=== PATIENT | male | born 1950 | race Caucasian/White ===

== ENCOUNTER → 2018-06-04 | Outpatient (CLI) | payer MEDICARE ==
[2018-06-05 14:52] LABS: Hepatits C Virus RNA Not detected (Not detected); Hepatits C Virus RNA, Quant <12 IU/mL (<12); LOG HCV IU/mL <1.08 (<1.08)
== END | disposition home or self-care (01) ==
LOC: LABWHC1 13:45
PROVIDERS: ATTEND Internal Medicine
DX: R76.8 Other specified abnormal immunological findings in serum (principal)
CPT/HCPCS: 36415; 87522

== ENCOUNTER → 2018-12-23 | Outpatient (CLI) | payer MEDICARE ==
--- NOTE | 2018-12-24 10:20 | MR ---
EXAMINATION TYPE: MR lumbar spine wo con DATE OF EXAM: 12/23/2018 COMPARISON: NONE HISTORY: Degenerative disc disease lumbar spine per order. Left leg pain per patient for 4 years. TECHNIQUE: Multiplanar, multisequence imaging of the lumbar spine is performed without IV contrast. FINDINGS: Sagittal images of the lumbar spine show vertebral body heights and alignment to appear sat isfactory. Multilevel disc desiccation is present. There is mild to moderate disc space narrowing and vacuum disc phenomenon L4-L5 level. There is mild disc space narrowing with vacuum disc phenomenon L 5-S1 level . There is annular tear with increased signal posteriorly at L2-L3 and L3-L4 levels. The c onus medullaris is normal in position and signal ending mid L1 level. The bone marrow signal intensi ty is within normal limits. Axial images show the T12-L1 and L1-L2 levels appear within normal limits. Axial images at the L2-L3 level show pzme-[id number] broad disc bulge with central disc protrusion e ffacing the anterior thecal sac and causing mild bilateral anterior inferior neural foraminal narrowi ng. Axial images at L3-L4 level show mild/moderate facet degenerative change and ligamentous hypertrophy present plumbing designer lateral thecal sac on axial image 17. There is moderate broad disc bulge with central disc protrusion effacing the anterior thecal sac. There is mild to moderate left greater than right b ilateral anterior inferior neural foraminal narrowing. Axial images at the L4-L5 show moderate facet degenerative changes effacing posterior lateral thecal sac on axial image 12. There is moderate broad-based posterior disc protrusion effacing anterior thec al sac. There is vejv-ox-atkpvgko bilateral anterior inferior neural foraminal narrowing at this leve l identified. Axial images at the L5-S1 level shows subtle spondylolisthesis with mild/moderate facet degenerative changes bilaterally. There is broad disc bulge with central disc protrusion but spinal canal is prese rved. There is moderate right and mild to moderate left-sided anterior inferior neural foraminal narr owing. Some encroachment along the anterior margin left L5 nerve is thought present sagittal images 1 and 2. Paraspinal muscle bulk is preserved. No suspicious incidental retroperitoneal findings are seen. IMPRESSION: Multilevel degenerative changes mid to lower lumbar spine as detailed above most prominen t at L3-L4 through the L5-S1 levels. If outside MRI becomes available an addendum may be issued.
== END | disposition home or self-care (01) ==
LOC: RADMRIMAIN 13:06
PROVIDERS: ATTEND Internal Medicine
DX: M47.816 Spondylosis without myelopathy or radiculopathy, lumbar region (principal); M47.817 Spondylosis without myelopathy or radiculopathy, lumbosacral region
CPT/HCPCS: 72148

== ENCOUNTER → 2020-04-09 | Outpatient (CLI) | payer MEDICARE ==
--- NOTE | 2020-04-09 08:30 | US ---
EXAMINATION TYPE: US duplex aorta DATE OF EXAM: 04/09/2020 COMPARISON: MRI lumbar spine December 23, 2018 CLINICAL HISTORY: Z13.6 Screening for cardiovascular disorders. Screening for AAA EXAM MEASUREMENTS: Abdominal Aorta: Proximal: 1.8 x 1.7cm Mid: 1.8 x 1.6cm Distal: 1.8 x 1.7cm Bifurcation: RT: 0.9 x 1.0cm LT: 1.1 x 1.0cm Visualized portions show no evidence of AAA Aorta is successfully visualized through the bifurcation. IMPRESSION: No ultrasound evidence for AAA.
== END | disposition home or self-care (01) ==
LOC: RADUSWWP 03-29 08:18
PROVIDERS: ATTEND Internal Medicine
DX: Z13.6 Encounter for screening for cardiovascular disorders (principal)
CPT/HCPCS: 93979

== ENCOUNTER 2020-10-20 07:35 | Day surgery (SDC) | payer MEDICARE ==
[2020-10-19 14:06] VITALS: BMI 28.7
[2020-10-20 08:12] VITALS: TEMP 97.5
[2020-10-20] MEDS ORDERED: LACTATED RINGERS 1,000 ML IV ONE (08:12)
[2020-10-20] MEDS ORDERED: PROPOFOL 10 MG/ML 20 ML VIAL IV ONE (08:25)
--- NOTE | 2020-10-20 08:44 | P.PCN ---
Date of Procedure: 10/20/20 Procedure(s) Performed: BRIEF HISTORY: Patient is a 69-year-old [id number] white male scheduled for an elective colonoscopy as a part of evaluation of prior history of colon polyps. His last colonoscopy was 5 years ago. PROCEDURE PERFORMED: Colonoscopy. PREOPERATIVE DIAGNOSIS: History of colon polyps. IV sedation per Anesthesia. PROCEDURE: After informed consent was obtained, the patient, was brought into the endoscopy unit. IV sedation was administered by Anesthesia under continuous monitoring. Digital rectal examination was normal. Initially the Olympus CF-160 flexible video colonoscope was then inserted in the rectum, gradually advanced into the cecum without any difficulty. Careful examination was performed as the scope was gradually being withdrawn. Ileocecal valve and the appendiceal orifice were visualized and appeared normal. Prep was excellent. Mucosa of the cecum, ascending colon, transverse colon, descending colon, sigmoid colon, and rectum appeared normal. Scattered sigmoid diverticulosis. Retroflexion was performed in the rectum and no lesions were seen. The patient tolerated the procedure well. IMPRESSION: Normal-appearing colon from rectum to cecum with no evidence of colorectal neoplasia . Scattered sigmoid diverticulosis. RECOMMENDATIONS: Findings of this examination were discussed with the patient as well as his family. He was advised to have a repeat colonoscopy in 5 years from now because of the prior history of colon polyps.
[2020-10-20 09:10] VITALS: BP 110/76; PULSE 60; RESP 20
== END 2020-10-20 09:14 | disposition home or self-care (01) ==
LOC: ORWHC2ENDO 07:35
PROVIDERS: ATTEND Internal Medicine Gastroenterology
DX: K57.30 Diverticulosis of large intestine without perforation or abscess without bleeding (principal); Z86.010 Personal history of colon polyps
CPT/HCPCS: 45378; J2704

== ENCOUNTER 2021-01-01 19:14 | Emergency (ER) | payer MEDICARE ==
[2021-01-01 19:19] VITALS: TEMP 98
[2021-01-01] MEDS ORDERED: ONDANSETRON 4 MG/2 ML VIAL IVP STA (19:37)
[2021-01-01] MEDS ORDERED: GLUCAGON 1 MG/ML VIAL IVP STA (20:19)
--- NOTE | 2021-01-01 20:19 | XR ---
EXAMINATION TYPE: XR chest 2V DATE OF EXAM: 01/01/2021 COMPARISON: NONE HISTORY: Food impaction TECHNIQUE: 2 views FINDINGS: Heart and mediastinum are normal. Lungs are clear. Diaphragm is normal. Bony thorax is inta ct. IMPRESSION: Normal chest.
[2021-01-01] MEDS ORDERED: diazePAM 2 MG TAB PO STA (20:20)
--- NOTE | 2021-01-01 20:20 | XR ---
EXAMINATION TYPE: XR soft tissue neck DATE OF EXAM: 01/01/2021 COMPARISON: NONE HISTORY: Food impaction TECHNIQUE: 2 views FINDINGS: Epiglottis is normal. Subglottic trachea appears normal. There is some degenerative disc sp itzel narrowing at C5-6 and C6-7. Prevertebral soft tissues are intact. There is no evidence of a forei gn body. Tonsils and adenoids appear intact. IMPRESSION: Negative cervical soft tissue exam.
--- NOTE | 2021-01-01 21:24 | ED ---
General Adult HPI - General Chief complaint: ENT Stated complaint: choking Time Seen by Provider: 01/01/21 19:26 Source: patient, RN notes reviewed, old records reviewed Mode of arrival: wheelchair - History of Present Illness Initial comments: I evaluated the patient when he was placed in a room.Patient is a 70-year-old male with past medical history remarkable for a cholecystectomy, hypertension as well as chronic dysphasia presents emergency Department complaining of prior rib stuck in his throat. He has had this sensation previously but it normally clears on its own. He was out to eat approximate hour and a half ago when he department seconds throat. He began to choke some, and the Heimlich was attempted but he did not spit any up. He believes is still stuck there. He denies any difficulty breathing, coughing, chest pain, abdominal pain, nausea, vomiting. He is complaining of a sensation of some stuck in the back of his throat. Denies any headaches, weakness, numbness. His no other acute complaints at this time. Patient presents over concern for food impaction of the esophagus. He attempted to swallow liquids of the restaurant but believes that he does spit them back up. He was vaccinated for COVID-19. - Related Data Home Medications Medication Instructions Recorded Confirmed Escitalopram [Lexapro] 10 mg PO QAM 10/19/20 10/19/20 Multivitamins, Thera [Multivitamin 1 tab PO DAILY 10/19/20 10/19/20 (formulary)] traZODone HCL [Desyrel] 100 mg PO HS 10/19/20 10/19/20 Allergies Allergy/AdvReac Type Severity Reaction Status Date / Time No Known Allergies Allergy Verified 01/01/21 19:19 Review of Systems ROS Statement: Those systems with pertinent positive or pertinent negative responses have been documented in the HPI. Review of Systems: CONST: Denies fever EYES: Denies blurry vision ENT: Endorses feeling of something stuck in his esophagus. C/V: Denies Chest pain RESP: Denies shortness of breath GI: Denies abdominal pain : Denies dysuria SKIN: Denies rash. MSK: Denies joint pain. NEURO: Denies headache ROS Other: All systems not noted in ROS Statement are negative. Past Medical History Additional Past Medical History / Comment(s): received Moderna both covid vaccine doses,left bundle branch block,hx htn-has been off Rx for approx 10 yrs, hep C-tx 2004,colon polyps History of Any Multi-Drug Resistant Organisms: None Reported Past Surgical History: Cholecystectomy Past Anesthesia/Blood Transfusion Reactions: No Reported Reaction Past Psychological History: Anxiety Smoking Status: Current some day smoker Past Alcohol Use History: None Reported Past Drug Use History: None Reported - Past Family History Mother Family Medical History: No Reported History Sister(s) Family Medical History: Cancer Additional Family Medical History / Comment(s): skin General Exam - General Exam Comments Initial Comments: General: Some mild discomfort secondary to retained food in his esophagus. HEAD: Normal with no signs of head trauma. EYES: PERRLA, EOMI, conjunctiva normal, no discharge. Pupils are 3 mm and equal bilaterally. ENT: Hearing grossly intact, normal oropharynx. No stridor auscultated. RESPIRATORY: Clear breath sounds bilaterally. No wheezes, rales, or rhonchi. C/V: Regular rate and rhythm. S1 and S2 auscultated, no edema, peripheral pulses 2+ and intact throughout ABD: Abd is soft, nontender, nondistended EXT: No obvious deformity SKIN: No rashes or lesions observed on exposed skin. NEURO: Alert and oriented 4. Course Vital Signs 01/01/21 01/01/21 01/01/21 19:17 20:19 21:43 Temperature 98 F Pulse Rate 60 55 L 93 Respiratory 25 H 18 16 Rate Blood Pressure 164/79 116/83 139/89 O2 Sat by Pulse 100 98 98 Oximetry Medical Decision Making - Medical Decision Making Based on the patient's presentation and physical exam, he appears to have a food impaction of the ends esophagus. His primary rib. He states that there was no bones present in the prime rib. There may be some mushrooms and gravy with that as well. He does have a history of this. He is uncertain if he has not been able to tolerate swallowing any water as he is spitting up a lot. We will obtain x-rays of the neck as well as chest just to rule out any acute pathology. EKG was obtained by triage which showed a chronic left bundle branch block. Patient's x-ray showed no acute process. We will initially attempt to clear the blockage with a carbonated beverage. Patient was in agreement this plan. Patient tolerated the procedure well with a carbonated beverage. He was able to clear the blockage. Is tolerating by mouth intake both solids and liquids afterwards. His discomfort is resolved. I do believe it is safer to be disch arged home. We discussed that he may require motility study or swallow study. He was in agreement. I will provide him with contact information for Dr. Blake of gastrology. I instructed the patient to follow up with their PCP in the next 3 days. I explained that the patient should return to the emergency department if they experience any worsening symptoms. Strict return precautions were discussed with the patient. The patient expressed understanding of these instructions. I answered all questions that the patient had. The patient was discharged home in good condition with their prescriptions and follow up information. - EKG Data -: EKG Interpreted by Me EKG Comments: 12-lead Electrocardiogram Interpretation Note EKG was reviewed and interpreted by myself. 12-lead ECG performed at 1934 is interpreted by me as revealing normal sinus rhythm at a rate of 59 beats per minute. [place] is normal. Intervals 160 ms, QR cheondoism is 160 ms, QTc is 495 ms.. There were no ST or T wave abnormalities to suggest myocardial ischemia or injury. Patient has a left bundle-branch block which has a history of.. By my interpretation this EKG is non-diagnostic for acute ischemia. Disposition Clinical Impression: Food impaction of esophagus Disposition: HOME SELF-CARE Condition: Good Instructions (If sedation given, give patient instructions): Food Impaction ( ED) Is patient prescribed a controlled substance at d/c from ED?: No Referrals: Raul Pryor MD [Primary Care Provider] - 1-2 days Nel Blake MD [STAFF PHYSICIAN] - 1-2 days
[2021-01-01 21:45] VITALS: BP 139/89; PULSE 93; RESP 16
== END 2021-01-01 21:45 | disposition home or self-care (01) ==
LOC: EC 19:14
DX: T18.128A Food in esophagus causing other injury, initial encounter (principal); I10 Essential (primary) hypertension; F17.200 Nicotine dependence, unspecified, uncomplicated; Z86.19 Personal history of other infectious and parasitic diseases; Z87.19 Personal history of other diseases of the digestive system; Z90.49 Acquired absence of other specified parts of digestive tract; X58.XXXA Exposure to other specified factors, initial encounter; F41.9 Anxiety disorder, unspecified
CPT/HCPCS: 70360; 71046; 93005; 99284

== ENCOUNTER 2021-02-15 08:17 | Day surgery (SDC) | payer MEDICARE ==
[2021-02-11 15:40] VITALS: BMI 28.7
[~2021-02-15 08:17] MED LIST: LIDOCAINE 1% (10MG/ML) FOR IV START INTRADERMA PRN
[2021-02-15 08:56] VITALS: TEMP 97.4
[2021-02-15] MEDS: LACTATED RINGERS 1,000 ML IV SCH ×2 (09:22→09:56)
[2021-02-15] MEDS ORDERED: LIDOCAINE 1% INJ 10MG/ML (20 ML MDV) ONE (09:57)
[2021-02-15] MEDS ORDERED: PROPOFOL 10 MG/ML 20 ML VIAL IV ONE (09:57)
--- NOTE | 2021-02-15 10:19 | P.PCN ---
Date of Procedure: 02/15/21 Procedure(s) Performed: BRIEF HISTORY: Patient is a 70-year-old, pleasant, white male scheduled for an upper endoscopy as a part of evaluation of intermittent dysphagia to solids for the last several months duration. He recently had an episode of acute food impaction and went to the emergency room but the symptoms resolved spontaneously. PROCEDURE PERFORMED: Esophagogastroduodenoscopy with dilation and biopsy PREOPERATIVE DIAGNOSIS: Intermittent dysphagia to solids and recent episode of food impaction. IV sedation per anesthesia. PROCEDURE: After informed consent was obtained, the patient was brought into the endoscopy unit. IV sedation was administered by Anesthesia under continuous monitoring. Initially the Olympus GIF-140 video endoscope was inserted into the mouth. Esophagus intubated without any difficulty. It was gradually advanced into the stomach and duodenum and carefully examined. The bulb and the second part of the duodenum appeared normal. The scope at this time was withdrawn to the stomach, adequately insufflated with air, and upon careful examination, mucosa of the antrum, body, cardia and the fundus appeared normal. The scope was then withdrawn into the esophagus. The GE junction was located at 39 cm from the incisors. Moderate size hiatal hernia noted. There was a distal esophageal Schatzki's ring identified which was dilated using 60-18 mm he just balloon in a sequential fashion for 90 seconds. The rest of the esophagus appeared normal. There were no erosions or ulcerations seen , multiple biopsies were done from the distal esophagus and the patient tolerated the procedure well. IMPRESSION: 1. Distal esophageal Schatzki's ring status post balloon dilation using 68 mm TTS balloon as described above. 2. Moderate Size hiatal hernia. RECOMMENDATIONS: The findings of this examination were discussed with the patient as well as his family. He was advised to be on a clear liquid diet today. We'll start on Prilosec 20 mg daily and was briefly educated about antireflux measures. He'll be seen in office in 3 months..
[2021-02-15 10:38] VITALS: RESP 16
[2021-02-15 10:48] VITALS: BP 138/80; PULSE 52
== END 2021-02-15 11:08 | disposition home or self-care (01) ==
LOC: ORWHC2ENDO 08:17
PROVIDERS: ATTEND Internal Medicine Gastroenterology
DX: K22.2 Esophageal obstruction (principal); K20.0 Eosinophilic esophagitis; K44.9 Diaphragmatic hernia without obstruction or gangrene; I10 Essential (primary) hypertension; I44.7 Left bundle-branch block, unspecified; Z86.19 Personal history of other infectious and parasitic diseases; F32.A Depression, unspecified; Z79.899 Other long term (current) drug therapy
CPT/HCPCS: 88305; 43239; 43249; J2001; J2704; C1726

== ENCOUNTER → 2021-08-24 | Outpatient (CLI) | payer MEDICARE | END | disposition home or self-care (01) | LOC: LABWHC1 11:59 | PROVIDERS: ATTEND Internal Medicine | DX: U07.1 COVID-19 (principal) | CPT/HCPCS: U0003; U0005 ==

== ENCOUNTER → 2021-12-30 | Outpatient (CLI) | payer MEDICARE ==
--- NOTE | 2021-12-31 10:30 | MR ---
MRI CERVICAL SPINE: CLINICAL HISTORY: Cervical region radiculopathy. Loss of control and strength right hand for 2+ years . TECHNIQUE: Multiplanar, multisequence imaging of the cervical spine is performed without IV contrast. COMPARISON: None. FINDINGS: Sagittal images of the cervical spine show the craniocervical junction to appear within nor mal limits. The cervical and upper thoracic spinal cord is normal in course, caliber, and signal. Sl ight grade 1 retrolisthesis C3 on C4.. The vertebral body heights are normal. Mild disc space narrow ing C3-C4 along with C5-C6 and C6-C7 levels. Mild to moderate anterior spurring C5-C6 and C6-C7 level s. The bone marrow signal intensity is within normal limits. Axial images show C2-C3 level to appear within normal limits. Axial images at C3-C4 level shows subtle spondylolisthesis with broad-based right paracentral disc pr otrusion mildly effaces the anterior thecal sac, there is asymmetric moderate right-sided neural fora radha narrowing. Axial images at C4-C5 level show small focal central disc protrusion on image 33 mildly effaces the a nterior thecal sac. This is less prominent on sagittal images. Patent bilateral neural foramina. Axial images at C5-C6 levels with broad-based posterior disc protrusion effacing anterior thecal sac with mild to moderate right greater than left bilateral neural foraminal narrowing. Axial images at C6-C7 level show broad-based left paracentral disc protrusion effacing the anterolate ral thecal sac, bilateral neural foramina are patent. Axial images at C7-T1 level appear within normal limits. IMPRESSION: Multilevel degenerative changes in the cervical spine as detailed above.
== END | disposition home or self-care (01) ==
LOC: RADMRIMAIN 19:21
PROVIDERS: ATTEND Physical Medicine & Rehabilitation
DX: M47.22 Other spondylosis with radiculopathy, cervical region (principal)
CPT/HCPCS: 72141

== ENCOUNTER → 2024-01-31 | Outpatient (CLI) | payer MEDICARE ==
--- NOTE | 2024-01-31 13:27 | XR ---
EXAMINATION TYPE: XR orbit detect foreign body DATE OF EXAM: 01/31/2024 1:02 PM COMPARISON: None. CLINICAL INDICATION: Male, 73 years old with history of T15.90XA FOREIGN BODY ON EXTERNAL EYE, PART U NSP,, TECHNIQUE: XR orbit detect foreign body view(s) obtained. FINDINGS: 3 views of the orbits. No radiopaque foreign bodies evident. Nasal bones and maxillary spine are inta ct. Sella is unremarkable. Paranasal sinuses appear clear. IMPRESSION: 1. No metallic foreign body in or about the orbits to contraindicate MRI [facility], , 01/31/2024 1:24 PM
== END | disposition home or self-care (01) ==
LOC: RADXRMAIN 12:45
PROVIDERS: ATTEND Family Medicine
DX: T15.90XA Foreign body on external eye, part unspecified, unspecified eye, initial encounter (principal)
CPT/HCPCS: 70030

== ENCOUNTER → 2024-07-04 | Outpatient (CLI) | payer MEDICARE ==
--- NOTE | 2024-07-04 20:46 | MR ---
EXAMINATION TYPE: MR lumbar spine wo con DATE OF EXAM: 07/04/2024 8:13 PM COMPARISON: 05/04/2022 outside imaging CLINICAL INDICATION: Male, 73 years old with history of M54.16 RADICULOPATHY, LUMBAR REGION, low back pain, pain and numbness down right leg. history of laminectomy to lumbar, no surgery to sacrum. TECHNIQUE: Multiplanar, multisequence images of the lumbar spine were acquired. IV Contrast: mL (None, if empty) FINDINGS: Cord ends at the T12-L1 L5-S1: No focal disc herniation or significant disc bulge. No spinal canal stenosis. Facet hypertrop hy and ligamentum flavum laxity is present with some mild posterior lateral thecal sac compression. N o stenosis is evident. There is severe right and left foraminal stenosis at this level. L4-L5: Mild disc bulge is present. Facet hypertrophy and ligamentum flavum laxity posterior lateral t hecal sac compression. Some lateral canal narrowing may be present. No spinal canal stenosis is prese nt. Moderate bilateral foraminal narrowing is present L3-L4: There is a right paracentral disc herniation with mild to moderate anterior thecal sac charlie zaid. No AP spinal canal stenosis is present. Mild bilateral foraminal narrowing is present. L2-L3: No focal disc herniation or significant disc bulge. No spinal canal stenosis. Neural foramen are patent. Mild facet hypertrophy and ligamentum flavum laxity is present L1-L2: No focal disc herniation or significant disc bulge. No spinal canal stenosis. Neural foramen are patent. T12-L1: No focal disc herniation or significant disc bulge. No spinal canal stenosis. Neural forame n are patent. There is signal change within the S1-S2 and possibly S3 vertebral segments. These findings which are slightly hypointense appears stable in distribution and size compared to the comparison of 05/04/2022 IMPRESSION: 1. Facet hypertrophy and ligamentum flavum laxity with posterior lateral thecal sac compression at L3 -4 and L4-5 with some lateral canal stenosis. No AP spinal canal stenosis is present. 2. Facet hypertrophy with ligamentum flavum laxity has mild posterior lateral thecal sac compression at L5-S1. 3. Severe bilateral foraminal stenosis L5-S1. Moderate bilateral foraminal narrowing is present L4-5 with mild foraminal narrowing present at L3-4. 4. Findings appear stable over the interval. [facility], , 07/04/2024 8:44 PM
== END | disposition home or self-care (01) ==
LOC: RADMRIMAIN 19:31
PROVIDERS: ATTEND Physical Medicine & Rehabilitation
DX: M48.061 Spinal stenosis, lumbar region without neurogenic claudication (principal); M47.26 Other spondylosis with radiculopathy, lumbar region; M99.73 Connective tissue and disc stenosis of intervertebral foramina of lumbar region
CPT/HCPCS: 72148